=== PATIENT | male | born 1950 | race Caucasian/White ===

== ENCOUNTER 2016-05-14 14:27 | Emergency (ER) | payer OTHER ==
[~2016-05-14] VITALS: Ht 175.3 cm; Wt 100.0 kg
[2016-05-14 14:34] VITALS: BP 190/125; PULSE 71; RESP 20; O2SAT 95
--- NOTE | 2016-05-14 14:47 | ED.REPORT ---
HPI-Extremity Problem Upper Date of Service May 14, 2016 ED Provider: Dr. Ceron This patient is a 65 year old male with a history of hypertension and alcohol abuse presenting to the ED complaining of left pinky injury onset 1 day ago. His PCP at [facility] told him that he needs to come into ED for immediate treatment yesterday. Injury was sustained after a 600lb furniture landed on it when he was helping a friend move. Pt. states he has taken 2 Tylenol and a dose of aspirin with no relief. Nursing Notes Stated Complaint: LEFT FINGER SMASHED Chief Complaint: Extremity Trauma Nursing Notes Reviewed: Yes Allergies: Coded Allergies: No Known Allergies (Unverified , 02/16/16) Scheduled Cephalexin (Keflex) 500 Mg Capsule 500 MG PO QID Scheduled PRN Hydrocodone-Acetaminophen 5-325 mg (Hydrocodone-Acetaminophen 5-325 mg) 1 Each Tablet 1-2 TABLET PO Q4H PRN PRN For Pain General Time Seen by MD: 14:47 Chief Complaint Finger injury left 5 Hx Obtained From: Patient Arrived By: Walk-in Onset Occurred: 2 days ago Symptom Duration: Since onset Caused by: Accidental (From moving furniture) Location: : Finger left 5 Quality: Painful Severity: Current: Moderate Severity: Maximum: Moderate Associated with: Reports: Swelling (Left pinky finger), Denies: Chest pain, Fever Pertinent Negative: Pt denies other symptoms Immunizations: Tetanus up to date Recent Healthcare: No recent hospitalization, Recent doctor visit Similar Sx Previous: No Past Medical History Past Medical History Alcohol abuse heart murmur borderline diabetes Reports: Hypertension, Denies: Diabetes mellitus Past Surgical History Right foot surgery; steel plate Family History heart disease Smoking History Unknown if Ever Smoker Social History Alcohol Use: >5 per day Ambulatory Status Independent Review of Systems Basic Review of Systems Eyes: Vision NL ENT: Hearing NL Respiratory: No shortness of breath, No cough, No wheeze Cardiovascular: No chest pain Constitutional: Denies: Fever Musculoskeletal: Reports: Extremity pain (Left pinky injury), Extremity swelling (Left pinky) Complete sys rev & neg: except as marked. Cardiovascular: Denies: Chest pain Hematologic: Reports Bleeding (Left pinky finger) Physical Exam Initial Vital Signs Vital Signs (First) Date Time Temp Pulse Resp B/P Pulse Ox O2 Delivery O2 Flow Rate FiO2 05/14/16 14:34 37 71 20 190/125 95 Room Air Initial VS: Reviewed Head / Eyes: Atraumatic, Normocephalic, PERRL ENT: Mucous membranes moist, Conjunctiva normal, No scleral icterus Neck: Supple, Full range of motion Respiratory: Breath sounds normal, No respiratory distress Cardiovascular: Regular rate & rhythm, Heart sounds normal, Intact distal pulses Abdomen / GI: Soft Lower Extremities: Vascular intact, Neuro intact Skin: Warm, Dry, No cyanosis Neurologic: Alert, Oriented, Nonfocal Psychiatric: Mood/affect normal, Behavior normal, Normal thought content General/Constitutional: Awake, Alert, Well developed Wrist / Hand: Full range of motion Joint above & below: affected area is NL. Trauma / Burn / Environmental: Positive: Laceration 3cm x 3cm macerated distal 5th finger with large flap, dusky in appearance No visible bone Interpretation & Diagnostics X-Ray Interpretation Xray Interpretation: IMPRESSION: 1. Probable small chip fracture of the 5th distal phalanx. Dictated by: Wallace Zuluaga M.D. on 05/14/2016 at 15:37 X-Ray Ordered: Hand left (Left pinky) Interpretation / Wet Read by: Interpret - Radiologist Procedures Laceration Management Time: 15:22 Procedure Performed by: ED physician Consent / Setup / Site Prep: Consent from patient, Time-out performed, Hand hygiene observed, Stand sterile technique Location of Wound: Distal 5th finger Wound Length: 3 cm Local Anesthesia: Lidocaine 1% Digital Block: Yes Digit Involved: Little finger left Wound Preparation: Hibiclens - Chlorhexidine Debridement: Yes Irrigation: Copious Repair Skin: ___ O (#5), Nylon # Sutures - Skin: 6 Suture Technique: Simple Post-Procedure / Complications: Antibiotic oint applied, Dressing applied, No complications, Condition improved, Tolerated procedure well, Patient stable Re-Eval/Medical Decision Med Decision/Clinical Course Patient's blood pressure is elevated at time of discharge per RN. He did not take his BP medication today. He will go home and take it and declines any medication while in the ED. Source of Hx: Old records Re-Evaluation/Progress #1: Time of Eval: 15:21 Patient Status: Condition improved Re-Evaluation/Progress Note: Pt. rechecked. hand soaked x30 min in antibiotic solution. Ready for discharge after wound management and stitches. Pt. understands and agrees with plan. All questions have been addressed. Re-Evaluation/Progress #2: Time of Eval: 15:57 Patient Status: Condition improved Re-Evaluation/Progress Note: Wound repair successful. Dressing applied. Told pt. to take medicine as directed. Pt. understands and agrees with plan. All questions have been addressed. Counseled Regarding: Diagnosis, Lab results, Need for follow-up, When/why to return to ED Discharge & Departure Impression: Primary Impression: Injury of finger Encounter type: initial encounter Laterality: left Qualified Code: S69.92XA - Unspecified injury of left wrist, hand and finger(s), initial encounter Additional Impressions: Laceration Crushing injury of finger of left hand Encounter type: initial encounter Qualified Code: S67.22XA - Crushing injury of left hand, initial encounter Closed fracture of tuft of distal phalanx of finger Encounter type: initial encounter Qualified Code: S62.639A - Displaced fracture of distal phalanx of unspecified finger, initial encounter for closed fracture Disposition: Home Discharge Condition All VS Reviewed: Yes Condition: Stable Patient Instructions: Acute Wound Care (ED), Suture Care (ED) Additional Instructions: Thank you for entrusting your care with us today. Do not get the finger wet for at least 24 hours. Do not soak the finger until stitches are removed. You'll need to get your stitches out in 10-14 days. For this, you can either come back to the emergency room, or go to urgent care or your primary care provider. Do not drink alcohol, drive, or take acetaminophen while taking [place]. You can use this as needed for pain. I would like you to also take Keflex 500 mg 4 times a day to prevent infection since your last reading has been open for 1 day prior to repair and because you have a probable small fracture of the finger bone. You can remove the dressing in 24 hours and I recommend using bacitracin ointment 2-3 times a day to help this heal faster. I hope you feel better soon. Referrals: Artemio Lozano MD (PCP) Scribe Attestation Portions of this note were transcribed by Deb Ortega. I, Dr. Ceron personally performed the history, physical exam and medical decision- making; I reviewed and confirmed the accuracy of the information in the transcribed note. Signed by: Deb Ortega, Scribe, 05/14/2016 and 1610. copies to: Artemio Lozano MD, Gary R DO May 14, 2016 14:47 Heavenly Angel [Deb] May 14, 2016 15:16 DAYAN ORTEGA May 14, 2016 16:25
--- NOTE | 2016-05-14 15:39 | DRSVH ---
PROCEDURE: X-RAY FINGERS, TWO VIEWS INDICATIONS: SMASHED LEFT 5TH FINGER TECHNIQUE: AP hand, 2 views of the 5th digit acquired. COMPARISON: None. FINDINGS: Bones: There is a small ossicle along the dorsal aspect of the 5th distal phalanx suggestive of a sm all chip fracture. There is mild to moderate narrowing of the distal interphalangeal joints. No moriah picious bony lesions. Soft tissues: There is a soft tissue laceration of the distal 5th digit. No suspicious soft tissue calcifications. IMPRESSION: 1. Probable small chip fracture of the 5th distal phalanx. Dictated by: Wallace Zuluaga M.D. on 05/14/2016 at 15:37 Approved by: Wallace Zuluaga M.D. on 05/14/2016 at 15:37
[2016-05-14] MEDS ORDERED: CEPH-512 PO (16:11)
[2016-05-14] MEDS ORDERED: HYDR-4003 PO (16:11)
[2016-05-14 16:25] VITALS: BP 194/103; PULSE 96; RESP 16; O2SAT 98
== END 2016-05-14 16:25 | disposition home or self-care (01) ==
LOC: SED 14:27
DX: S62.637A Displaced fracture of distal phalanx of left little finger, initial encounter for closed fracture (principal); S67.197A Crushing injury of left little finger, initial encounter; S61.227A Laceration with foreign body of left little finger without damage to nail, initial encounter; W20.8XXA Other cause of strike by thrown, projected or falling object, initial encounter; Y93.89 Activity, other specified; Y92.009 Unspecified place in unspecified non-institutional (private) residence as the place of occurrence of the external cause; Y99.8 Other external cause status; I10 Essential (primary) hypertension